=== PATIENT | male | born 1985 | race African-American/Black ===

== ENCOUNTER 2017-10-28 00:09 | Emergency (ER) | payer MEDICAID ==
[~2017-10-28] VITALS: Ht 170.2 cm; Wt 65.0 kg
[~2017-10-28 00:09] MED LIST: ZYPREXA
[2017-10-28 06:00] VITALS: BP 94/64
== END 2017-10-28 06:03 | disposition home or self-care (01) ==
LOC: ED 05:53
DX: F10.220 Alcohol dependence with intoxication, uncomplicated (principal); I10 Essential (primary) hypertension
CPT/HCPCS: 36415; 80307; 99283

== ENCOUNTER 2018-02-07 18:02 | Emergency (ER) | payer MEDICAID ==
[~2018-02-07] VITALS: Ht 170.2 cm; Wt 65.0 kg
[2018-02-07 19:21] LABS: BASOPHILS # (AUTO) 0.04 x10^3/uL (0-0.1); BASOPHILS % (AUTO) 1 % (0-1); EOSINOPHILS # (AUTO) 0.55 x10^3/uL (0-0.4); EOSINOPHILS % (AUTO) 8 % (1-7); LYMPHOCYTES # (AUTO) 2.33 x10^3/uL (1-3.4); LYMPHOCYTES % (AUTO) 36 % (22-44); MD NO; MEAN CORPUSCULAR HEMOGLOBIN 32.7 pg (27.5-34.5); MEAN CORPUSCULAR VOLUME 96.3 fL (81-97); MEAN PLATELET VOLUME 8.6 fL (7.4-10.4); MONOCYTES # (AUTO) 0.63 x10^3/uL (0.2-0.8); MONOCYTES % (AUTO) 10 % (2-9); NEUTROPHILS # (AUTO) 2.95 x10^3/uL (1.8-6.8); NEUTROPHILS % (AUTO) 45 % (42-75); PLATELET COUNT 238 x10^3/uL (130-400); RED BLOOD COUNT 4.39 x10^6/uL (4.38-5.82); RED CELL DISTRIBUTION WIDTH 13.3 % (9.4-14.8)
[2018-02-07 19:28] LABS: ALANINE AMINOTRANSFERASE 106 U/L (12-78); ALBUMIN 3.4 g/dL (3.4-5.0); ANION GAP 8 mmol/L (5-15); CALCIUM 8.3 mg/dL (8.5-10.1); CHLORIDE 106 mmol/L (98-107); CREATININE 1.09 mg/dL (0.7-1.3)
[2018-02-07] MEDS ORDERED: FAMOTIDINE 20 MG/2 ML ONE (19:28)
[2018-02-07] MEDS ORDERED: MAALOX/HYOSCYAMINE/LIDOCAINE 45 ML BTL ONE (19:28)
[2018-02-07] MEDS ORDERED: MAALOX/HYOSCYAMINE/LIDOCAINE 45 ML BTL PO ONE (19:30)
[2018-02-07] MEDS ORDERED: SODIUM CHLORIDE FLUSH 10ML SYR IVF ONE (19:30)
[2018-02-07] MEDS ORDERED: FAMOTIDINE 20 MG/2 ML IVP ONE (19:30)
[2018-02-07 19:33] LABS: ALKALINE PHOSPHATASE 71 U/L (45-117); BILIRUBIN,TOTAL 0.2 mg/dL (0.2-1.0); TOTAL PROTEIN 7.4 g/dL (6.4-8.2); TROPONIN I < 0.015 ng/mL (0.000-0.045)
[2018-02-07 20:14] VITALS: BP 109/69
== END 2018-02-07 20:16 | disposition home or self-care (01) ==
LOC: ED 19:50
DX: K29.00 Acute gastritis without bleeding (principal); I10 Essential (primary) hypertension
CPT/HCPCS: 36415; 71045; 80053; 83690; 84484; 85025; 93005; 99285

== ENCOUNTER 2020-01-20 00:46 | Emergency (ER) | payer MEDICAID ==
[~2020-01-20] VITALS: Ht 167.6 cm; Wt 67.0 kg
--- NOTE | 2020-01-20 01:23 | NUR ---
pt following comands, pt lifted arm when asked and opened and shut mouth for oral temp. pt denied si, denied pain and admited to etoh tonight when asked. pt on monitor. bid writer will continue to monitor vss
--- NOTE | 2020-01-20 02:30 | NUR ---
PT RESTING IN BED, PT ATTACHED TO MONITOR, SHELLFISH PROCESSING LABORER WILL CONTINUE TO MONITOR VITAL SIGNS AND PT CONDITION.
--- NOTE | 2020-01-20 03:45 | NUR ---
PT RESTING IN BED, PT ATTACHED TO MONITOR, KINESEOLOGIST WILL CONTINUE TO MONITOR VITALS AND PT CONDITION.
--- NOTE | 2020-01-20 05:07 | NUR ---
PT RESTING IN BED, PT ATTACHED TO MONITOR, CUSTOMER SUPPORT PROFESSIONAL WILL CONTINUE TO MONITOR VITAL SIGNS AND PT CONDITION.
[2020-01-20 05:17] VITALS: BP 113/76
== END 2020-01-20 06:24 | disposition home or self-care (01) ==
LOC: ED 01:16
DX: F10.120 Alcohol abuse with intoxication, uncomplicated (principal); I10 Essential (primary) hypertension; F17.210 Nicotine dependence, cigarettes, uncomplicated; Y90.0 Blood alcohol level of less than 20 mg/100 ml
CPT/HCPCS: 99283; 99406

== ENCOUNTER 2020-04-15 17:11 | Emergency (ER) | payer MEDICAID ==
[~2020-04-15] VITALS: Ht 172.7 cm; Wt 72.7 kg
--- NOTE | 2020-04-15 17:15 | NUR ---
PT BIB [facility] FROM [facility]SIDE [facility], LYING ON SIDEWALK. PER EMS, PT REPORTED HAVING SEVERAL PINTS OF VODKA TODAY. EMS STATED PT ALSO HAD PINPOINT PUPILS AND TRACK [place] ON HIS ARMS, SO DRUG USE WAS SUSPECTED TOO. PT WAS EASILY AROUSABLE HOWEVER, AND WAS OX4, SO IV WAS STARTED BY EMS BUT NO OTHER INTERVENTIONS DONE. VSS PER EMS: 139/93, HR 80s, 96% ON RA, BS 108. PT ARRIVES TO ED STILL SLEEPY BUT AROUSES EASILY, RESPONDS APPROPRIATELY. PT DENIES ANY DRUG USE. C/O COUGH X2 WEEKS. AMBULATORY IN ROOM. PLACED ON DROPLET PLUS PRECAUTIONS.
--- NOTE | 2020-04-15 18:18 | NUR ---
ERP WAS IN TO SEE PT. COVID RESULTS REQUESTED FROM [facility].
--- NOTE | 2020-04-15 18:58 | NUR ---
PT SLEEPING IN GURNEY, AWAKENS EASILY. RESPONDS APPROPRIATELY, FOLLOWS COMMANDS.
--- NOTE | 2020-04-15 20:30 | NUR ---
REFORESTATION WORKER CONTACTED [facility] BUT THEY DON'T HAVE ANY SPOTS AVAILABLE UNTIL TOMORROW MORNING. ASSISTANT GOLF COURSE SUPERINTENDENT NOTIFIED; UNABLE TO KEEP PT IN ED UNTIL TOMORROW MORNING.
[2020-04-15 21:12] VITALS: BP 118/82
--- NOTE | 2020-04-15 21:32 | NUR ---
D/C INSTRUCTIONS & COMMUNITY RESOURCES PROVIDED TO PT. PT AMBULATED OUT OF ED WITHOUT DIFFICULTY.
== END 2020-04-15 21:33 | disposition home or self-care (01) ==
LOC: ED 19:40
DX: U07.1 COVID-19 (principal); F10.220 Alcohol dependence with intoxication, uncomplicated; B34.9 Viral infection, unspecified; R40.0 Somnolence; R05 Cough; I10 Essential (primary) hypertension; Y90.0 Blood alcohol level of less than 20 mg/100 ml
CPT/HCPCS: 99283